=== PATIENT | female | born 1960 | race Caucasian/White ===

== ENCOUNTER 2017-08-19 08:54 | Inpatient (IN) | payer MEDICAID ==
[~2017-08-19] VITALS: Ht 157.5 cm; Wt 68.3 kg
[~2017-08-19 08:54] MED LIST: AMLO5TAB4 PO; ASPI-1182 PO; CARV12.530 PO; FURO20TA4 PO; INSU100C4 SQ; ISOS30TA6 PO; OXYC-38 PO; SIMV20TA6 PO
[2017-08-19 09:15] LABS: BASOPHILS % (AUTO) 0.3 % (0.0-2.0); HEMOGLOBIN 9.2 g/dL (12.0-16.0); LYMPHOCYTES # (AUTO) 1.7 K/uL (1.0-4.8); LYMPHOCYTES % (AUTO) 15.6 % (22.0-44.0); MEAN CORPUSCULAR HEMOGLOBIN 31.5 pg (26.0-34.0); MEAN CORPUSCULAR VOLUME 93 fL (80-100); MONOCYTES # (AUTO) 0.6 K/uL (0.1-1.0); MONOCYTES % (AUTO) 5.5 % (2.0-9.0); NEUTROPHILS # (AUTO) 7.8 K/uL (1.8-7.7); NEUTROPHILS % (AUTO) 70.6 % (40.0-70.0); PLATELET COUNT (AUTO) 172 K/uL (150-450); RED BLOOD CELL COUNT(AUTO) 2.91 MIL/uL (4.00-5.20); RED CELL DISTRIBUTION WIDTH 13.9 % (11.5-14.5); WHITE BLOOD COUNT (AUTO) 11.1 K/uL (4.5-11.0)
[2017-08-19 09:29] LABS: ANION GAP 11 mmol/L (8-16); CALCIUM, TOTAL 8.8 mg/dL (8.8-10.5); CARBON DIOXIDE 22 mmol/L (22-29); CHLORIDE 105 mmol/L (98-107); CREATININE 7.53 mg/dL (0.60-1.30); GLOMERULAR FILTR. RATE CALC 6 mL/min (>60); POTASSIUM 5.2 mmol/L (3.5-5.1); SODIUM SERUM 138 mmol/L (136-145); UREA NITROGEN, BLOOD 87 mg/dL (7-18)
[2017-08-19 09:35] LABS: ALANINE AMINOTRANSFERASE 15 U/L (12-78); ALBUMIN 2.5 g/dL (3.4-5.0); ASPARTATE AMINOTRANSFERASE 14 U/L (15-37); BILIRUBIN,TOTAL 0.2 mg/dL (0.1-1.0); CREATINE KINASE, TOTAL 69 U/L (26-192); TOTAL PROTEIN, SERUM 6.7 g/dL (6.4-8.2)
[2017-08-19 09:36] LABS: B-TYPE NATRIURETIC PEPTIDE 1820 pg/mL (0-100)
[2017-08-19 09:43] LABS: INR 0.9 (0.9-1.1); PROTHROMBIN TIME 9.8 SEC (9.4-11.6)
[2017-08-19 09:50] LABS: ABG A-A DIFF O2 60.1 mmHg (10-20.0); ABG BASE EXCESS -3.6 mmol/L (-2.0-3.0); ABG HCO3 21.8 mmol/L (22.0-26.0); ABG OXYHEMOGLOBIN 96.7 % (94.0-100.0); ABG PCO2 36 mmHg (35-45); ALLEN TEST, BLOOD GAS Positive; TEMPERATURE, FAHRENHEIT, BG 98.1 FAHREN (96.0-98.6)
[2017-08-19 09:51] LABS: IPAP, BG 14 cm H2O
[2017-08-19 10:02] LABS: GLUCOSE,POINT OF CARE 118 MG/DL (70-110)
[2017-08-19 10:09] LABS: APPEARANCE,URINE CLEAR (CLEAR); GLUCOSE, URINE (UA) 250 mg/dL (NEGATIVE); KETONES,URINE NEGATIVE (NEGATIVE); LEUKOCYTE ESTERASE ,URINE NEGATIVE (NEGATIVE); OCCULT BLOOD,URINE SMALL (NEGATIVE); PROTEIN,URINE SEE CONFIRM (NEGATIVE)
[2017-08-19 10:11] LABS: ADD UA MICROSCOPIC YES
[2017-08-19 10:25] LABS: SQUAMOUS EPITHELIAL CELL,UR Moderate /LPF (None Seen); SULFOSALICYLIC ACID,URINE 3+ (Negative); WBC,URINE None Seen /HPF (0-5)
[2017-08-19] MEDS ORDERED: CARVEDILOL 3.125 MG TABLET PO ONE (10:45)
[2017-08-19] MEDS ORDERED: AmLODIPine BESYLATE 5 MG TABLET PO ONE (10:45)
[2017-08-19] MEDS ORDERED: 0.9% SODIUM CHLORIDE 10 ML SYRINGE IVP PRN (11:15)
[2017-08-19] MEDS ORDERED: ONDANSETRON HCL 4 MG/2 ML VIAL IVP PRN (11:15)
[2017-08-19] MEDS ORDERED: ACETAMINOPHEN 325 MG TABLET PO PRN (11:15)
[2017-08-19] MEDS ORDERED: ALBUTEROL SULFATE 2.5 MG/0.5 ML NEB SOLUTION NEB PRN (11:30)
[2017-08-19] MEDS ORDERED: DEXTROSE 50%-WATER 25 GM/50 ML SYRINGE IVP PRN (11:30)
[2017-08-19] MEDS ORDERED: BISACODYL 10 MG RECTAL RECTAL SUPPOSITORY PR PRN (11:30)
[2017-08-19] MEDS: ASPIRIN 81 MG CHEWABLE TABLET PO SCH (11:32)
[2017-08-19 12:25] VITALS: BP 166/84
[2017-08-19] MEDS ORDERED: SODIUM CHLORIDE 0.9% 2,000 ML IV ONE (12:32)
[2017-08-19] MEDS: VITAMIN B COMP/VIT C/FOLIC ACID CAPSULE PO SCH (13:32)
[2017-08-19] MEDS: CALCIUM ACETATE 667 MG CAPSULE PO SCH ×2 (13:32→18:27)
[2017-08-19] MEDS ORDERED: PNEUMOCOCCAL VACCINE POLYVALENT 0.5 ML VIAL [PPSV23] IM ONE (14:15)
[2017-08-19 15:11] VITALS: BP 163/89
[2017-08-19] MEDS ORDERED: MANNITOL 25%-12.5 GM/50 ML VIAL IVP PRN (16:15)
[2017-08-19] MEDS ORDERED: HEPARIN SODIUM,PORCINE 1,000 UNITS/ML VIAL IVP ONE ×2 (16:15)
[2017-08-19] MEDS: OxyCODONE HCL/ACETAMINOPHEN 5-325 MG TABLET PO PRN ×2 (16:35→22:26)
[2017-08-19] MEDS: SIMVASTATIN 20 MG TABLET PO SCH (19:46)
[2017-08-19] MEDS: ACETAMINOPHEN 325 MG TABLET PO PRN (19:46)
[2017-08-19] MEDS: DOCUSATE SODIUM 100 MG CAPSULE PO SCH (19:46)
[2017-08-19 19:49] VITALS: BP 148/72
[2017-08-19] MEDS: HEPARIN SODIUM,PORCINE 5,000 UNITS/ML VIAL SQ SCH (19:52)
[2017-08-19] MEDS: INSULIN ASPART 100 UNITS/ML SQ PRN (20:21)
[2017-08-19 23:48] VITALS: BP 155/84
[2017-08-20 04:35] VITALS: BP 180/83
[2017-08-20] MEDS: OxyCODONE HCL/ACETAMINOPHEN 5-325 MG TABLET PO PRN ×4 (04:36→23:33)
[2017-08-20 06:48] LABS: GLUCOSE,POINT OF CARE 123 MG/DL (70-110)
[2017-08-20 06:48] LABS: GLUCOSE COMMENT 1 Received Meds; GLUCOSE,POINT OF CARE 150 MG/DL (70-110)
[2017-08-20 07:14] VITALS: BP 164/87
[2017-08-20] MEDS: CALCIUM ACETATE 667 MG CAPSULE PO SCH ×3 (08:13→18:14)
[2017-08-20] MEDS: HEPARIN SODIUM,PORCINE 5,000 UNITS/ML VIAL SQ SCH ×2 (08:14→20:13)
[2017-08-20] MEDS: ASPIRIN 81 MG CHEWABLE TABLET PO SCH (08:14)
[2017-08-20] MEDS: VITAMIN B COMP/VIT C/FOLIC ACID CAPSULE PO SCH (08:14)
[2017-08-20] MEDS: PANTOPRAZOLE SODIUM 40 MG DR TABLET PO SCH (08:14)
[2017-08-20] MEDS: DOCUSATE SODIUM 100 MG CAPSULE PO SCH ×2 (08:14→20:13)
[2017-08-20] MEDS: ACETAMINOPHEN 325 MG TABLET PO PRN (08:19)
[2017-08-20] MEDS ORDERED: IOVERSOL 350 MG/ML 100 ML VIAL ONE (09:49)
[2017-08-20] MEDS ORDERED: SODIUM CHLORIDE 0.9% 100 ML ONE (09:49)
[2017-08-20] MEDS: AmLODIPine BESYLATE 5 MG TABLET PO SCH (10:58)
[2017-08-20] MEDS: CARVEDILOL 12.5 MG TABLET PO SCH (10:59)
[2017-08-20 11:05] VITALS: BP 162/75
[2017-08-20] MEDS: INSULIN ASPART 100 UNITS/ML SQ PRN ×3 (11:37→20:14)
[2017-08-20 12:32] LABS: GLUCOSE,POINT OF CARE 95 MG/DL (70-110)
[2017-08-20 12:32] LABS: GLUCOSE,POINT OF CARE 122 MG/DL (70-110)
[2017-08-20 15:40] VITALS: BP 166/75
[2017-08-20 19:37] LABS: GLUCOSE COMMENT 1 Received Meds; GLUCOSE,POINT OF CARE 151 MG/DL (70-110)
[2017-08-20 19:48] VITALS: BP 159/80
[2017-08-20] MEDS: SIMVASTATIN 20 MG TABLET PO SCH (20:13)
[2017-08-20 23:02] LABS: GLUCOSE COMMENT 1 Received Meds; GLUCOSE,POINT OF CARE 147 MG/DL (70-110)
[2017-08-20 23:40] VITALS: BP 163/81
[2017-08-21 04:10] VITALS: BP 169/84
[2017-08-21] MEDS: OxyCODONE HCL/ACETAMINOPHEN 5-325 MG TABLET PO PRN ×3 (05:45→20:37)
[2017-08-21 07:02] LABS: CALCIUM, TOTAL 8.3 mg/dL (8.8-10.5); CREATININE 6.66 mg/dL (0.60-1.30); PHOSPHORUS 4.9 mg/dL (2.5-4.9); POTASSIUM 4.9 mmol/L (3.5-5.1)
[2017-08-21 07:02] LABS: GLUCOSE,POINT OF CARE 85 MG/DL (70-110)
[2017-08-21 07:06] VITALS: BP 157/90
[2017-08-21 07:06] LABS: BASOPHILS % (AUTO) 0.8 % (0.0-2.0); HEMATOCRIT 24.6 % (36-46); HEMOGLOBIN 8.4 g/dL (12.0-16.0); LYMPHOCYTES # (AUTO) 2.1 K/uL (1.0-4.8); LYMPHOCYTES % (AUTO) 27.3 % (22.0-44.0); MEAN CORPUSCULAR HEMOGLOBIN 31.6 pg (26.0-34.0); MEAN CORPUSCULAR HGB CONC 34.1 G/dL (31.0-37.0); MEAN CORPUSCULAR VOLUME 93 fL (80-100); MONOCYTES # (AUTO) 0.5 K/uL (0.1-1.0); MONOCYTES % (AUTO) 6.6 % (2.0-9.0); NEUTROPHILS # (AUTO) 4.3 K/uL (1.8-7.7); NEUTROPHILS % (AUTO) 55.3 % (40.0-70.0); PLATELET COUNT (AUTO) 153 K/uL (150-450); RED BLOOD CELL COUNT(AUTO) 2.65 MIL/uL (4.00-5.20); RED CELL DISTRIBUTION WIDTH 13.5 % (11.5-14.5); WHITE BLOOD COUNT (AUTO) 7.7 K/uL (4.5-11.0)
[2017-08-21] MEDS: DOCUSATE SODIUM 100 MG CAPSULE PO SCH ×2 (08:14→20:37)
[2017-08-21] MEDS: HEPARIN SODIUM,PORCINE 5,000 UNITS/ML VIAL SQ SCH ×2 (08:14→20:38)
[2017-08-21] MEDS: VITAMIN B COMP/VIT C/FOLIC ACID CAPSULE PO SCH (08:14)
[2017-08-21] MEDS: PANTOPRAZOLE SODIUM 40 MG DR TABLET PO SCH (08:14)
[2017-08-21] MEDS: ASPIRIN 81 MG CHEWABLE TABLET PO SCH (08:14)
[2017-08-21] MEDS: CALCIUM ACETATE 667 MG CAPSULE PO SCH ×3 (08:15→18:10)
[2017-08-21] MEDS ORDERED: SODIUM CHLORIDE 0.9% 1,000 ML IV ONE (08:40)
[2017-08-21] MEDS ORDERED: EPOETIN ALFA 10,000 UNITS/ML VIAL SQ SCH (09:00)
[2017-08-21 10:55] VITALS: BP 180/70
[2017-08-21] MEDS: CARVEDILOL 12.5 MG TABLET PO SCH (12:14)
[2017-08-21] MEDS: AmLODIPine BESYLATE 5 MG TABLET PO SCH (12:14)
[2017-08-21 16:00] VITALS: BP 135/98
[2017-08-21] MEDS ORDERED: DOCUSATE SODIUM 100 MG CAPSULE PO PRN (17:15)
[2017-08-21] MEDS ORDERED: HEPARIN SODIUM,PORCINE 1,000 UNITS/ML VIAL ONE (17:37)
[2017-08-21] MEDS: INSULIN ASPART 100 UNITS/ML SQ PRN ×2 (18:18→20:44)
[2017-08-21 19:16] VITALS: BP 161/86
[2017-08-21] MEDS: SIMVASTATIN 20 MG TABLET PO SCH (20:37)
[2017-08-22 00:48] VITALS: BP 174/88
[2017-08-22] MEDS: OxyCODONE HCL/ACETAMINOPHEN 5-325 MG TABLET PO PRN ×4 (02:57→16:52)
[2017-08-22 03:40] VITALS: BP 179/79
[2017-08-22 07:26] VITALS: BP 157/80
[2017-08-22] MEDS: DOCUSATE SODIUM 100 MG CAPSULE PO SCH (08:29)
[2017-08-22] MEDS: CALCIUM ACETATE 667 MG CAPSULE PO SCH ×3 (08:29→18:12)
[2017-08-22] MEDS: ASPIRIN 81 MG CHEWABLE TABLET PO SCH (08:29)
[2017-08-22] MEDS: PANTOPRAZOLE SODIUM 40 MG DR TABLET PO SCH (08:30)
[2017-08-22] MEDS: HEPARIN SODIUM,PORCINE 5,000 UNITS/ML VIAL SQ SCH (08:30)
[2017-08-22 10:21] LABS: BASOPHILS % (AUTO) 0.6 % (0.0-2.0); EOSINOPHILS % (AUTO) 9.6 % (1.0-6.0); HEMATOCRIT 26.1 % (36-46); HEMOGLOBIN 8.9 g/dL (12.0-16.0); LYMPHOCYTES # (AUTO) 1.2 K/uL (1.0-4.8); LYMPHOCYTES % (AUTO) 16.4 % (22.0-44.0); MEAN CORPUSCULAR HEMOGLOBIN 31.6 pg (26.0-34.0); MEAN CORPUSCULAR HGB CONC 34.1 G/dL (31.0-37.0); MEAN CORPUSCULAR VOLUME 93 fL (80-100); MONOCYTES # (AUTO) 0.5 K/uL (0.1-1.0); MONOCYTES % (AUTO) 7.2 % (2.0-9.0); NEUTROPHILS # (AUTO) 4.7 K/uL (1.8-7.7); NEUTROPHILS % (AUTO) 66.2 % (40.0-70.0); PLATELET COUNT (AUTO) 144 K/uL (150-450); RED BLOOD CELL COUNT(AUTO) 2.81 MIL/uL (4.00-5.20); RED CELL DISTRIBUTION WIDTH 13.5 % (11.5-14.5); WHITE BLOOD COUNT (AUTO) 7.1 K/uL (4.5-11.0)
[2017-08-22 11:05] VITALS: BP 158/88
[2017-08-22] MEDS ORDERED: AMLO5TAB66 PO (11:53)
[2017-08-22] MEDS ORDERED: PHOSLOC PO (11:59)
[2017-08-22] MEDS ORDERED: DSS100 PO (11:59)
[2017-08-22] MEDS ORDERED: FOLI1CAP2 PO (11:59)
[2017-08-22] MEDS: INSULIN ASPART 100 UNITS/ML SQ PRN (12:13)
[2017-08-22 14:43] LABS: GLUCOSE,POINT OF CARE 100 MG/DL (70-110)
[2017-08-22 14:44] LABS: GLUCOSE,POINT OF CARE 119 MG/DL (70-110)
[2017-08-22 14:44] LABS: GLUCOSE,POINT OF CARE 91 MG/DL (70-110)
[2017-08-22 14:44] LABS: GLUCOSE COMMENT 1 Received Meds; GLUCOSE,POINT OF CARE 142 MG/DL (70-110)
[2017-08-22 14:44] LABS: GLUCOSE COMMENT 1 Received Meds; GLUCOSE,POINT OF CARE 142 MG/DL (70-110)
[2017-08-22 17:58] VITALS: BP 159/91
[2017-08-22] MEDS: VITAMIN B COMP/VIT C/FOLIC ACID CAPSULE PO SCH (18:12)
[2017-08-22] MEDS: AmLODIPine BESYLATE 5 MG TABLET PO SCH (18:12)
[2017-08-22] MEDS: CARVEDILOL 12.5 MG TABLET PO SCH (18:12)
[2017-08-22] MEDS ORDERED: HEPARIN SODIUM,PORCINE 1,000 UNITS/ML VIAL IVP ONE (18:42)
[2017-08-23 07:43] LABS: GLUCOSE,POINT OF CARE 94 MG/DL (70-110)
== END 2017-08-22 18:43 | disposition home or self-care (01) | DRG 425 ==
LOC: EMS 08:55 → 5S 11:16
PROVIDERS: ADMIT Internal Medicine; ATTEND Internal Medicine
PROC: 5A09457 Assistance with Respiratory Ventilation, 24-96 Consecutive Hours, Continuous Positive Airway Pressure (ICD-10-PCS; principal; 2017-08-19)
PROC: 5A1D60Z (ICD-10-PCS; 2017-08-19)
DX: E87.5 Hyperkalemia (principal); J96.01 Acute respiratory failure with hypoxia; I13.2 Hypertensive heart and chronic kidney disease with heart failure and with stage 5 chronic kidney disease, or end stage renal disease; E44.0 Moderate protein-calorie malnutrition; N18.6 End stage renal disease; E11.22 Type 2 diabetes mellitus with diabetic chronic kidney disease; I27.2 Other secondary pulmonary hypertension; E11.65 Type 2 diabetes mellitus with hyperglycemia; E87.70 Fluid overload, unspecified; D63.1 Anemia in chronic kidney disease; E78.5 Hyperlipidemia, unspecified; I50.40 Unspecified combined systolic (congestive) and diastolic (congestive) heart failure; E83.39 Other disorders of phosphorus metabolism; J98.11 Atelectasis; G25.5 Other chorea; I08.3 Combined rheumatic disorders of mitral, aortic and tricuspid valves; Z68.27 Body mass index [BMI] 27.0-27.9, adult; Z86.718 Personal history of other venous thrombosis and embolism; Z86.73 Personal history of transient ischemic attack (TIA), and cerebral infarction without residual deficits; Z79.899 Other long term (current) drug therapy; Z99.2 Dependence on renal dialysis; Z79.82 Long term (current) use of aspirin
CPT/HCPCS: 71260; 82805; 82962; 84100; 87081; 87340; 90471; 90935; 93005; 94660; 99285; J0885; J1644; J7030; J7050

== ENCOUNTER 2018-02-21 19:57 | Inpatient (IN) | payer MEDICAID ==
[~2018-02-21] VITALS: Ht 157.5 cm; Wt 57.6 kg
[~2018-02-21 19:57] MED LIST changes: -AMLO5TAB4 PO; +AMLO5TAB66 PO; +DSS100 PO; +FOLI1CAP2 PO; +PHOSLOC PO
[2018-02-21] MEDS ORDERED: CARV6 PO (20:13)
[2018-02-21] MEDS ORDERED: TRAM50TA4 PO (20:13)
[2018-02-21] MEDS ORDERED: LISI-662 PO (20:13)
[2018-02-21] MEDS ORDERED: CHOL50004 PO (20:13)
[2018-02-21] MEDS ORDERED: GABA-531 PO (20:13)
[2018-02-21 20:22] LABS: GLUCOSE,POINT OF CARE 91 MG/DL (70-110)
[2018-02-21] MEDS ORDERED: KETOROLAC TROMETHAMINE 30 MG/ML VIAL IVP ONE (21:00)
[2018-02-21] MEDS ORDERED: SODIUM CHLORIDE 0.9% 1,000 ML IV ONE (21:00)
[2018-02-21] MEDS ORDERED: MORPHINE SULFATE 4 MG/ML SYRINGE IVP ONE (21:15)
[2018-02-21 21:16] LABS: EOSINOPHILS % (AUTO) 1.4 % (1.0-6.0); HEMATOCRIT 30.1 % (36-46); HEMOGLOBIN 10.5 g/dL (12.0-16.0); LYMPHOCYTES # (AUTO) 0.8 K/uL (1.0-4.8); LYMPHOCYTES % (AUTO) 10.7 % (22.0-44.0); MEAN CORPUSCULAR HEMOGLOBIN 32.4 pg (26.0-34.0); MEAN CORPUSCULAR HGB CONC 34.9 G/dL (31.0-37.0); MEAN CORPUSCULAR VOLUME 93 fL (80-100); MONOCYTES # (AUTO) 0.5 K/uL (0.1-1.0); MONOCYTES % (AUTO) 6.3 % (2.0-9.0); NEUTROPHILS % (AUTO) 80.6 % (40.0-70.0); PLATELET COUNT (AUTO) 212 K/uL (150-450); RED BLOOD CELL COUNT(AUTO) 3.24 MIL/uL (4.00-5.20); RED CELL DISTRIBUTION WIDTH 13.8 % (11.5-14.5)
[2018-02-21 21:26] LABS: CALCIUM, TOTAL 8.5 mg/dL (8.8-10.5); CREATININE 3.35 mg/dL (0.60-1.30); POTASSIUM 4.2 mmol/L (3.5-5.1)
[2018-02-21 21:32] LABS: ALBUMIN 3.3 g/dL (3.4-5.0); BILIRUBIN,TOTAL 0.4 mg/dL (0.1-1.0); TOTAL PROTEIN, SERUM 6.9 g/dL (6.4-8.2)
[2018-02-21 22:12] LABS: LACTIC ACID 0.7 mmol/L (0.4-2.0)
[2018-02-22] MEDS ORDERED: MORPHINE SULFATE 4 MG/ML SYRINGE IVP ONE ×2 (00:30→02:45)
[2018-02-22] MEDS ORDERED: ONDANSETRON HCL 4 MG/2 ML VIAL IVP PRN (02:30)
[2018-02-22] MEDS ORDERED: ACETAMINOPHEN 325 MG TABLET PO PRN ×2 (02:30→10:00)
[2018-02-22] MEDS ORDERED: 0.9% SODIUM CHLORIDE 10 ML SYRINGE IVP PRN (02:30)
[2018-02-22] MEDS ORDERED: LORazepam 2 MG/ML VIAL IVP ONE (02:45)
[2018-02-22 07:45] VITALS: BP 190/89
[2018-02-22] MEDS ORDERED: BISACODYL 10 MG RECTAL RECTAL SUPPOSITORY PR PRN (10:00)
[2018-02-22] MEDS ORDERED: DEXTROSE 50%-WATER 25 GM/50 ML SYRINGE IVP PRN (10:00)
[2018-02-22] MEDS ORDERED: INSULIN LISPRO 100 UNITS/ML SQ PRN (10:00)
[2018-02-22] MEDS: MORPHINE SULFATE 4 MG/ML SYRINGE IVP PRN ×2 (10:21→14:03)
[2018-02-22] MEDS: AmLODIPine BESYLATE 10 MG TABLET PO SCH (10:24)
[2018-02-22] MEDS: CARVEDILOL 6.25 MG TABLET PO SCH ×2 (10:24→19:45)
[2018-02-22] MEDS: ASPIRIN 81 MG CHEWABLE TABLET PO SCH (10:25)
[2018-02-22 12:09] VITALS: BP 187/99
[2018-02-22 14:08] LABS: APPEARANCE,URINE CLEAR (CLEAR); BILIRUBIN,URINE NEGATIVE (NEGATIVE); GLUCOSE, URINE (UA) 250 mg/dL (NEGATIVE); KETONES,URINE NEGATIVE (NEGATIVE); LEUKOCYTE ESTERASE ,URINE NEGATIVE (NEGATIVE); NITRATE,URINE NEGATIVE (NEGATIVE); OCCULT BLOOD,URINE NEGATIVE (NEGATIVE); PROTEIN,URINE SEE CONFIRM (NEGATIVE); UROBILINOGEN,URINE 0.2 mg/dL (<=1.0)
[2018-02-22 14:16] LABS: SULFOSALICYLIC ACID,URINE 4+ (Negative)
[2018-02-22 14:17] LABS: BACTERIA,URINE Rare /HPF (None Seen); RBC,URINE None Seen /HPF (0-2); SQUAMOUS EPITHELIAL CELL,UR Few /LPF (None Seen); WBC,URINE 0-2 /HPF (0-5)
[2018-02-22 14:19] LABS: HYALINE CASTS, URINE 0-2 /LPF (None Seen)
[2018-02-22 14:57] LABS: GLUCOMETER DEV NAME(LOC) 6N 1E; GLUCOSE,POINT OF CARE 141 MG/DL (70-110)
[2018-02-22 15:17] VITALS: BP 173/80
[2018-02-22] MEDS ORDERED: AMLO-512 PO (16:34)
[2018-02-22] MEDS ORDERED: -PHARMACY VACCINE NOTE- MISC ONE (16:45)
[2018-02-22] MEDS: OxyCODONE HCL/ACETAMINOPHEN 5-325 MG TABLET PO PRN ×2 (17:36→21:01)
[2018-02-22 17:42] LABS: GLUCOMETER DEV NAME(LOC) 6N 1E; GLUCOSE,POINT OF CARE 100 MG/DL (70-110)
[2018-02-22 19:29] VITALS: BP 152/74
[2018-02-22] MEDS: HEPARIN SODIUM,PORCINE 5,000 UNITS/ML VIAL SQ SCH (19:45)
[2018-02-22] MEDS: DOCUSATE SODIUM 100 MG CAPSULE PO SCH (19:45)
[2018-02-22] MEDS ORDERED: SIMVASTATIN 20 MG TABLET PO SCH (21:00)
[2018-02-22 22:52] LABS: GLUCOMETER DEV NAME(LOC) 6N 2D; GLUCOSE,POINT OF CARE 130 MG/DL (70-110)
[2018-02-22 23:22] VITALS: BP 186/97
[2018-02-23] MEDS: OxyCODONE HCL/ACETAMINOPHEN 5-325 MG TABLET PO PRN ×4 (00:43→11:39)
[2018-02-23 04:20] VITALS: BP 189/93
[2018-02-23 04:53] VITALS: BP 167/94
[2018-02-23 06:17] LABS: GLUCOMETER DEV NAME(LOC) 6N 1E; GLUCOSE,POINT OF CARE 82 MG/DL (70-110)
[2018-02-23] MEDS: AmLODIPine BESYLATE 10 MG TABLET PO SCH (07:46)
[2018-02-23] MEDS: DOCUSATE SODIUM 100 MG CAPSULE PO SCH (07:46)
[2018-02-23] MEDS: ASPIRIN 81 MG CHEWABLE TABLET PO SCH (07:47)
[2018-02-23] MEDS: HEPARIN SODIUM,PORCINE 5,000 UNITS/ML VIAL SQ SCH (07:47)
[2018-02-23] MEDS: CARVEDILOL 6.25 MG TABLET PO SCH (07:47)
[2018-02-23 07:53] VITALS: BP 180/103
[2018-02-23] MEDS ORDERED: PANTOPRAZOLE SODIUM 40 MG DR TABLET PO SCH (09:00)
[2018-02-23 09:37] VITALS: BP 164/109
[2018-02-23 11:12] LABS: GLUCOMETER DEV NAME(LOC) 6N 2D; GLUCOSE,POINT OF CARE 132 MG/DL (70-110)
[2018-02-23 11:33] VITALS: BP 142/92
[2018-02-23] MEDS ORDERED: CloNIDine HCL 0.1 MG TABLET PO PRN (12:15)
== END 2018-02-23 13:11 | disposition home or self-care (01) | DRG 48 ==
LOC: EMS 20:10 → 6N 02-22 04:00
PROVIDERS: ADMIT Internal Medicine; ATTEND Internal Medicine
DX: E11.43 Type 2 diabetes mellitus with diabetic autonomic (poly)neuropathy (principal); I13.2 Hypertensive heart and chronic kidney disease with heart failure and with stage 5 chronic kidney disease, or end stage renal disease; N18.6 End stage renal disease; E11.22 Type 2 diabetes mellitus with diabetic chronic kidney disease; K31.84 Gastroparesis; K80.20 Calculus of gallbladder without cholecystitis without obstruction; I69.351 Hemiplegia and hemiparesis following cerebral infarction affecting right dominant side; G24.01 Drug induced subacute dyskinesia; E78.00 Pure hypercholesterolemia, unspecified; I50.20 Unspecified systolic (congestive) heart failure; E11.65 Type 2 diabetes mellitus with hyperglycemia; N83.201 Unspecified ovarian cyst, right side; G89.29 Other chronic pain; E78.5 Hyperlipidemia, unspecified; Z99.2 Dependence on renal dialysis; Z79.82 Long term (current) use of aspirin; Z79.899 Other long term (current) drug therapy
CPT/HCPCS: 74176; 76705; 76856; 82962; 83605; 87081; 93005; J1644; J1885; J2060; J2270; J7030

== ENCOUNTER 2018-03-10 19:52 | Emergency (ER) | payer MEDICAID ==
[~2018-03-10] VITALS: Ht 157.5 cm; Wt 60.8 kg
[~2018-03-10 19:52] MED LIST changes: +AMLO-512 PO; -AMLO5TAB66 PO; -CARV12.530 PO; +CARV6 PO; +CHOL50004 PO; -DSS100 PO; -FOLI1CAP2 PO; -FURO20TA4 PO; +GABA-531 PO; -INSU100C4 SQ; -ISOS30TA6 PO; -OXYC-38 PO; +TRAM50TA4 PO
[2018-03-10 20:17] LABS: GLUCOSE,POINT OF CARE 96 MG/DL (70-110)
[2018-03-10] MEDS ORDERED: ONDANSETRON HCL 4 MG TABLET PO ONE (20:45)
[2018-03-10] MEDS ORDERED: OxyCODONE HCL/ACETAMINOPHEN 5-325 MG TABLET PO ONE (20:45)
[2018-03-10 20:50] LABS: BASOPHILS % (AUTO) 0.9 % (0.0-2.0); HEMATOCRIT 29.3 % (36-46); HEMOGLOBIN 10.1 g/dL (12.0-16.0); LYMPHOCYTES % (AUTO) 10.9 % (22.0-44.0); MEAN CORPUSCULAR HEMOGLOBIN 32.6 pg (26.0-34.0); MEAN CORPUSCULAR HGB CONC 34.7 G/dL (31.0-37.0); MEAN CORPUSCULAR VOLUME 94 fL (80-100); MONOCYTES # (AUTO) 0.6 K/uL (0.1-1.0); MONOCYTES % (AUTO) 7.2 % (2.0-9.0); NEUTROPHILS # (AUTO) 6.9 K/uL (1.8-7.7); PLATELET COUNT (AUTO) 197 K/uL (150-450); RED BLOOD CELL COUNT(AUTO) 3.12 MIL/uL (4.00-5.20); RED CELL DISTRIBUTION WIDTH 13.4 % (11.5-14.5)
[2018-03-10 21:22] LABS: CALCIUM, TOTAL 8.5 mg/dL (8.8-10.5); CREATININE 3.37 mg/dL (0.60-1.30); POTASSIUM 4.2 mmol/L (3.5-5.1)
[2018-03-10 21:28] LABS: BILIRUBIN,TOTAL 0.5 mg/dL (0.1-1.0); TOTAL PROTEIN, SERUM 7.1 g/dL (6.4-8.2)
[2018-03-10 22:04] VITALS: BP 141/96
== END 2018-03-10 22:51 | disposition home or self-care (01) ==
LOC: EMS 19:53
DX: K29.70 Gastritis, unspecified, without bleeding (principal); E78.00 Pure hypercholesterolemia, unspecified; I12.0 Hypertensive chronic kidney disease with stage 5 chronic kidney disease or end stage renal disease; N18.6 End stage renal disease; E11.9 Type 2 diabetes mellitus without complications; Z79.82 Long term (current) use of aspirin; Z86.73 Personal history of transient ischemic attack (TIA), and cerebral infarction without residual deficits; Z99.2 Dependence on renal dialysis; Z79.899 Other long term (current) drug therapy
CPT/HCPCS: 76705; 80053; 82962; 83690; 84484; 85025; 93005; 99285; Q0162

== ENCOUNTER 2018-10-27 08:10 | Inpatient (IN) | payer MEDICAID ==
[~2018-10-27] VITALS: Ht 160 cm; Wt 61.7 kg
[2018-10-27] MEDS ORDERED: SODIUM BICARBONATE [ADULT] 8.4% 50 MEQ/50 ML SYRINGE IVP ONE (08:15)
[2018-10-27] MEDS ORDERED: DEXTROSE 50%-WATER 25 GM/50 ML SYRINGE IVP ONE (08:15)
[2018-10-27] MEDS ORDERED: INSULIN REGULAR, HUMAN 100 UNITS/ML IVP ONE (08:15)
[2018-10-27] MEDS ORDERED: CALCIUM GLUCONATE 0.465 MEQ/ML 10 ML VIAL IVP ONE (08:15)
[2018-10-27 08:23] LABS: GLUCOSE,POINT OF CARE 164 MG/DL (70-110)
[2018-10-27] MEDS ORDERED: IPRATROPIUM BROMIDE 0.5 MG/2.5 ML NEB SOLUTION NEB ONE ×2 (08:29→09:45)
[2018-10-27] MEDS ORDERED: ALBUTEROL SULFATE 2.5 MG/0.5 ML NEB SOLUTION NEB ONE ×2 (08:29→09:45)
[2018-10-27] MEDS ORDERED: INSU100V12 SQ (08:31)
[2018-10-27] MEDS ORDERED: FURO20 PO (08:31)
[2018-10-27] MEDS ORDERED: ISOS30TA6 PO (08:31)
[2018-10-27] MEDS ORDERED: LISI-662 PO (08:31)
[2018-10-27] MEDS ORDERED: DOPamine HCL 200 MG/D5%-WATER 250 ML IV PRN (08:45)
[2018-10-27 08:52] LABS: EOSINOPHILS % (AUTO) 9.5 % (1.0-6.0); HEMATOCRIT 29.4 % (36-46); HEMOGLOBIN 9.9 g/dL (12.0-16.0); LYMPHOCYTES # (AUTO) 0.9 K/uL (1.0-4.8); LYMPHOCYTES % (AUTO) 17.3 % (22.0-44.0); MEAN CORPUSCULAR HEMOGLOBIN 33.7 pg (26.0-34.0); MEAN CORPUSCULAR HGB CONC 33.7 G/dL (31.0-37.0); MEAN CORPUSCULAR VOLUME 100 fL (80-100); MONOCYTES # (AUTO) 0.1 K/uL (0.1-1.0); MONOCYTES % (AUTO) 2.1 % (2.0-9.0); NEUTROPHILS # (AUTO) 3.5 K/uL (1.8-7.7); NEUTROPHILS % (AUTO) 70.1 % (40.0-70.0); PLATELET COUNT (AUTO) 110 K/uL (150-450); RED BLOOD CELL COUNT(AUTO) 2.94 MIL/uL (4.00-5.20); RED CELL DISTRIBUTION WIDTH 15.8 % (11.5-14.5)
[2018-10-27 08:57] LABS: PROTHROMBIN TIME 10.1 SEC (9.4-11.6)
[2018-10-27] MEDS ORDERED: DOPamine HCL 400 MG/D5%-WATER 250 ML IV PRN ×2 (09:00→12:38)
[2018-10-27 09:25] LABS: ALBUMIN 2.8 g/dL (3.4-5.0); BILIRUBIN,TOTAL 0.7 mg/dL (0.1-1.0); CALCIUM, TOTAL 7.7 mg/dL (8.8-10.5); CREATININE 8.12 mg/dL (0.60-1.30)
[2018-10-27 09:29] LABS: POTASSIUM 7.6 mmol/L (3.5-5.1)
[2018-10-27] MEDS: ALBUTEROL SULFATE 2.5 MG/0.5 ML NEB SOLUTION NEB ONE ×2 (09:49→10:10)
[2018-10-27 12:29] LABS: GLUCOSE,POINT OF CARE 116 MG/DL (70-110)
[2018-10-27] MEDS ORDERED: ZOLPIDEM TARTRATE 5 MG TABLET PO PRN (12:45)
[2018-10-27] MEDS ORDERED: ACETAMINOPHEN 325 MG TABLET PO PRN (12:45)
[2018-10-27] MEDS ORDERED: BISACODYL 10 MG RECTAL RECTAL SUPPOSITORY PR PRN (12:45)
[2018-10-27] MEDS ORDERED: ONDANSETRON HCL 4 MG/2 ML VIAL IVP ONE (12:45)
[2018-10-27] MEDS ORDERED: MAGNESIUM HYDROXIDE SUSPENSION 30 ML UDCUP PO PRN (12:45)
[2018-10-27] MEDS ORDERED: INSULIN LISPRO 100 UNITS/ML SQ PRN (13:00)
[2018-10-27] MEDS ORDERED: DEXTROSE 50%-WATER 25 GM/50 ML SYRINGE IVP PRN (13:00)
[2018-10-27 13:25] LABS: CALCIUM, TOTAL 8.4 mg/dL (8.8-10.5); CREATININE 5.45 mg/dL (0.60-1.30); POTASSIUM 5.5 mmol/L (3.5-5.1)
[2018-10-27] MEDS: ONDANSETRON HCL 4 MG/2 ML VIAL IVP PRN (15:31)
[2018-10-27] MEDS: HydrALAZINE HCL 20 MG/ML VIAL IVP PRN ×2 (15:32→21:18)
[2018-10-27 17:39] VITALS: BP 130/86
[2018-10-27 17:49] LABS: GLUCOSE,POINT OF CARE 54 MG/DL (70-110)
[2018-10-27] MEDS ORDERED: MANNITOL 25%-12.5 GM/50 ML VIAL IVP ONE (17:51)
[2018-10-27] MEDS: HEPARIN SODIUM,PORCINE 5,000 UNITS/ML VIAL SQ SCH ×2 (18:15→23:40)
[2018-10-27] MEDS: CALCIUM ACETATE 667 MG CAPSULE PO SCH (18:16)
[2018-10-27 18:50] VITALS: BP 166/80
[2018-10-27] MEDS: MORPHINE SULFATE 4 MG/ML SYRINGE IVP PRN (18:50)
[2018-10-27 19:16] VITALS: BP 168/75
[2018-10-27 19:30] LABS: GLUCOSE,POINT OF CARE 78 MG/DL (70-110)
[2018-10-27 19:31] LABS: GLUCOSE,POINT OF CARE 115 MG/DL (70-110)
[2018-10-27 21:18] VITALS: BP 179/84
[2018-10-27] MEDS: DOCUSATE SODIUM 100 MG CAPSULE PO SCH (21:18)
[2018-10-27 21:19] LABS: GLUCOSE,POINT OF CARE 99 MG/DL (70-110)
[2018-10-27 21:29] VITALS: BP 179/84
[2018-10-27] MEDS: HYDROCODONE/ACETAMINOPHEN 5-325 MG TABLET PO PRN (21:29)
[2018-10-27 22:11] VITALS: BP 148/67
[2018-10-28] VITALS: BP 172/86
[2018-10-28 04:00] VITALS: BP 148/95
[2018-10-28] MEDS: HydrALAZINE HCL 20 MG/ML VIAL IVP PRN ×2 (05:06→14:47)
[2018-10-28 05:09] LABS: BASOPHILS % (AUTO) 1.3 % (0.0-2.0); EOSINOPHILS % (AUTO) 6.6 % (1.0-6.0); HEMATOCRIT 29.5 % (36-46); HEMOGLOBIN 10.4 g/dL (12.0-16.0); LYMPHOCYTES # (AUTO) 1.2 K/uL (1.0-4.8); LYMPHOCYTES % (AUTO) 19.3 % (22.0-44.0); MEAN CORPUSCULAR HEMOGLOBIN 34.8 pg (26.0-34.0); MEAN CORPUSCULAR HGB CONC 35.3 G/dL (31.0-37.0); MEAN CORPUSCULAR VOLUME 99 fL (80-100); MONOCYTES # (AUTO) 0.5 K/uL (0.1-1.0); MONOCYTES % (AUTO) 7.6 % (2.0-9.0); NEUTROPHILS # (AUTO) 4.1 K/uL (1.8-7.7); NEUTROPHILS % (AUTO) 65.2 % (40.0-70.0); PLATELET COUNT (AUTO) 100 K/uL (150-450); RED CELL DISTRIBUTION WIDTH 15.4 % (11.5-14.5)
[2018-10-28 05:27] LABS: ALBUMIN 2.9 g/dL (3.4-5.0); BILIRUBIN,TOTAL 0.6 mg/dL (0.1-1.0); CALCIUM, TOTAL 8.3 mg/dL (8.8-10.5); CREATININE 5.19 mg/dL (0.60-1.30); MAGNESIUM 2.2 mg/dL (1.80-2.40); TOTAL PROTEIN, SERUM 6.3 g/dL (6.4-8.2)
[2018-10-28 06:49] LABS: GLUCOSE,POINT OF CARE 89 MG/DL (70-110)
[2018-10-28] MEDS: ONDANSETRON HCL 4 MG/2 ML VIAL IVP PRN (07:54)
[2018-10-28] MEDS: HYDROCODONE/ACETAMINOPHEN 5-325 MG TABLET PO PRN ×3 (07:54→23:50)
[2018-10-28 08:00] VITALS: BP 159/67
[2018-10-28] MEDS: HEPARIN SODIUM,PORCINE 5,000 UNITS/ML VIAL SQ SCH ×2 (08:00→17:26)
[2018-10-28] MEDS: CALCIUM ACETATE 667 MG CAPSULE PO SCH ×3 (08:00→17:26)
[2018-10-28] MEDS: AmLODIPine BESYLATE 5 MG TABLET PO SCH ×2 (09:00→20:25)
[2018-10-28] MEDS: DOCUSATE SODIUM 100 MG CAPSULE PO SCH ×2 (09:00→20:36)
[2018-10-28] MEDS: ISOSORBIDE MONONITRATE 30 MG ER TABLET PO SCH (09:00)
[2018-10-28 11:49] LABS: GLUCOSE,POINT OF CARE 95 MG/DL (70-110)
[2018-10-28 12:00] VITALS: BP 157/60
[2018-10-28] MEDS: PANTOPRAZOLE SODIUM 40 MG DR TABLET PO SCH (12:15)
[2018-10-28] MEDS: ATORVASTATIN CALCIUM 10 MG TABLET PO SCH (12:15)
[2018-10-28] MEDS ORDERED: GABAPENTIN 300 MG CAPSULE PO ONE (12:15)
[2018-10-28] MEDS: ASPIRIN 81 MG EC TABLET PO SCH (12:15)
[2018-10-28] MEDS: CHOLECALCIFEROL (VIT D3) 5,000 UNITS CAPSULE PO SCH (12:15)
[2018-10-28] MEDS: MORPHINE SULFATE 4 MG/ML SYRINGE IVP PRN (13:18)
[2018-10-28 20:11] VITALS: BP 177/80
[2018-10-28 20:19] LABS: GLUCOMETER DEV NAME(LOC) 6N.1; GLUCOSE,POINT OF CARE 104 MG/DL (70-110)
[2018-10-29 00:16] VITALS: BP 164/93
[2018-10-29 00:54] LABS: GLUCOMETER DEV NAME(LOC) 6N.1; GLUCOSE,POINT OF CARE 134 MG/DL (70-110)
[2018-10-29] MEDS: HEPARIN SODIUM,PORCINE 5,000 UNITS/ML VIAL SQ SCH ×3 (00:58→16:16)
[2018-10-29 05:13] VITALS: BP 164/89
[2018-10-29] MEDS: HYDROCODONE/ACETAMINOPHEN 5-325 MG TABLET PO PRN ×3 (05:54→17:46)
[2018-10-29 07:03] LABS: BASOPHILS % (AUTO) 1.3 % (0.0-2.0); EOSINOPHILS % (AUTO) 8.8 % (1.0-6.0); HEMATOCRIT 31.1 % (36-46); HEMOGLOBIN 10.8 g/dL (12.0-16.0); LYMPHOCYTES # (AUTO) 1.4 K/uL (1.0-4.8); MEAN CORPUSCULAR HEMOGLOBIN 33.8 pg (26.0-34.0); MEAN CORPUSCULAR HGB CONC 34.6 G/dL (31.0-37.0); MEAN CORPUSCULAR VOLUME 98 fL (80-100); MONOCYTES # (AUTO) 0.6 K/uL (0.1-1.0); MONOCYTES % (AUTO) 9.7 % (2.0-9.0); NEUTROPHILS # (AUTO) 3.4 K/uL (1.8-7.7); NEUTROPHILS % (AUTO) 57.2 % (40.0-70.0); PLATELET COUNT (AUTO) 104 K/uL (150-450); RED BLOOD CELL COUNT(AUTO) 3.18 MIL/uL (4.00-5.20); RED CELL DISTRIBUTION WIDTH 14.9 % (11.5-14.5)
[2018-10-29 07:30] LABS: ALBUMIN 2.9 g/dL (3.4-5.0); BILIRUBIN,TOTAL 0.6 mg/dL (0.1-1.0); CALCIUM, TOTAL 8.5 mg/dL (8.8-10.5); CREATININE 4.86 mg/dL (0.60-1.30); MAGNESIUM 2.1 mg/dL (1.80-2.40); PHOSPHORUS 5.4 mg/dL (2.5-4.9); POTASSIUM 4.4 mmol/L (3.5-5.1); TOTAL PROTEIN, SERUM 6.5 g/dL (6.4-8.2)
[2018-10-29 07:49] LABS: GLUCOMETER DEV NAME(LOC) 6N.1; GLUCOSE,POINT OF CARE 81 MG/DL (70-110)
[2018-10-29 08:00] VITALS: BP 155/75
[2018-10-29] MEDS: DOCUSATE SODIUM 100 MG CAPSULE PO SCH (08:24)
[2018-10-29] MEDS: ATORVASTATIN CALCIUM 10 MG TABLET PO SCH (08:24)
[2018-10-29] MEDS: CALCIUM ACETATE 667 MG CAPSULE PO SCH ×3 (08:24→17:46)
[2018-10-29] MEDS: ASPIRIN 81 MG EC TABLET PO SCH (08:25)
[2018-10-29] MEDS: ISOSORBIDE MONONITRATE 30 MG ER TABLET PO SCH (08:25)
[2018-10-29] MEDS: AmLODIPine BESYLATE 5 MG TABLET PO SCH (08:25)
[2018-10-29] MEDS: PANTOPRAZOLE SODIUM 40 MG DR TABLET PO SCH (08:26)
[2018-10-29] MEDS: CHOLECALCIFEROL (VIT D3) 5,000 UNITS CAPSULE PO SCH (08:26)
[2018-10-29] MEDS ORDERED: GABAPENTIN 300 MG CAPSULE PO SCH (09:00)
[2018-10-29] MEDS ORDERED: HydrALAZINE HCL 25 MG TABLET PO SCH (09:00)
[2018-10-29] MEDS ORDERED: VITAMIN B COMP/VIT C/FOLIC ACID CAPSULE PO SCH (09:00)
[2018-10-29] MEDS ORDERED: HydrALAZINE HCL 50 MG TABLET PO SCH ×2 (09:00→16:00)
[2018-10-29] MEDS: MORPHINE SULFATE 4 MG/ML SYRINGE IVP PRN (09:25)
[2018-10-29 11:53] VITALS: BP 137/66
[2018-10-29 12:59] LABS: GLUCOMETER DEV NAME(LOC) 5S.2; GLUCOSE,POINT OF CARE 139 MG/DL (70-110)
[2018-10-29 15:21] VITALS: BP 145/80
[2018-10-30 10:24] LABS: GLUCOMETER DEV NAME(LOC) 5S.2; GLUCOSE,POINT OF CARE 130 MG/DL (70-110)
== END 2018-10-29 19:20 | disposition home or self-care (01) | DRG 194 ==
LOC: EMS 08:11 → ICU 14:03 → 6N 10-28 15:30 → 5S 10-29 10:30
PROVIDERS: ADMIT Internal Medicine; ATTEND Internal Medicine
DX: I13.2 Hypertensive heart and chronic kidney disease with heart failure and with stage 5 chronic kidney disease, or end stage renal disease (principal); G93.41 Metabolic encephalopathy; E11.22 Type 2 diabetes mellitus with diabetic chronic kidney disease; D69.6 Thrombocytopenia, unspecified; I27.20 Pulmonary hypertension, unspecified; I95.9 Hypotension, unspecified; E87.5 Hyperkalemia; N18.6 End stage renal disease; I50.31 Acute diastolic (congestive) heart failure; E78.5 Hyperlipidemia, unspecified; Z86.73 Personal history of transient ischemic attack (TIA), and cerebral infarction without residual deficits; E78.00 Pure hypercholesterolemia, unspecified; R00.1 Bradycardia, unspecified; Z99.2 Dependence on renal dialysis; I34.0 Nonrheumatic mitral (valve) insufficiency
CPT/HCPCS: 70450; 80074; 83735; 84100; 87081; 93005; 93306; 94640; 96374; 96375; 96376; 99291; G0378; J0360; J0610; J1265; J1644; J1815; J2150; J2270; J2405; J3490

== ENCOUNTER 2019-06-09 22:26 | Emergency (ER) | payer MEDICAID ==
[~2019-06-09] VITALS: Ht 157.5 cm; Wt 56.8 kg
[~2019-06-09 22:26] MED LIST changes: -AMLO-512 PO; +AMLO10TA7 PO; +FURO20 PO; +ISOS30TA6 PO
[2019-06-09 23:04] LABS: GLUCOSE,POINT OF CARE 83 MG/DL (70-110)
[2019-06-10 00:17] LABS: BASOPHILS % (AUTO) 1.1 % (0.0-2.0); HEMATOCRIT 29.3 % (36-46); HEMOGLOBIN 9.7 g/dL (12.0-16.0); LYMPHOCYTES # (AUTO) 1.1 K/uL (1.0-4.8); LYMPHOCYTES % (AUTO) 20.7 % (22.0-44.0); MEAN CORPUSCULAR HEMOGLOBIN 32.3 pg (26.0-34.0); MEAN CORPUSCULAR HGB CONC 33.1 G/dL (31.0-37.0); MEAN CORPUSCULAR VOLUME 98 fL (80-100); MONOCYTES # (AUTO) 0.4 K/uL (0.1-1.0); MONOCYTES % (AUTO) 8.3 % (2.0-9.0); NEUTROPHILS # (AUTO) 3.3 K/uL (1.8-7.7); NEUTROPHILS % (AUTO) 63.9 % (40.0-70.0); RED BLOOD CELL COUNT(AUTO) 2.99 MIL/uL (4.00-5.20); RED CELL DISTRIBUTION WIDTH 14.2 % (11.5-14.5)
[2019-06-10 00:30] LABS: PROTHROMBIN TIME 10.7 SEC (9.4-11.6)
[2019-06-10 00:31] LABS: PLATELET COUNT (AUTO) 66 K/uL (150-450)
[2019-06-10 02:29] VITALS: BP 166/84
== END 2019-06-10 02:49 | disposition home or self-care (01) ==
LOC: EMS 22:27
DX: T82.838A Hemorrhage due to vascular prosthetic devices, implants and grafts, initial encounter (principal); I11.0 Hypertensive heart disease with heart failure; I50.9 Heart failure, unspecified; E78.00 Pure hypercholesterolemia, unspecified; E11.9 Type 2 diabetes mellitus without complications; Z79.899 Other long term (current) drug therapy

== ENCOUNTER 2020-03-29 13:30 | Inpatient (IN) | payer MEDICAID ==
[~2020-03-29] VITALS: Ht 154.9 cm; Wt 119.3 kg
[~2020-03-29 13:30] MED LIST changes: +ASPI-1111 PO; -ASPI-1182 PO; -CHOL50004 PO; -GABA-531 PO; +HYDR25TA84 PO; -ISOS30TA6 PO; +LISI-662 PO; -PHOSLOC PO; +SIMV-43 PO; -SIMV20TA6 PO; -TRAM50TA4 PO
[2020-03-29] MEDS ORDERED: ROCURONIUM BROMIDE 10 MG/ML 5 ML VIAL ONE (13:51)
[2020-03-29] MEDS ORDERED: IOVERSOL 350 MG/ML 100 ML VIAL ONE (13:52)
[2020-03-29] MEDS ORDERED: SODIUM CHLORIDE 0.9% 0 ML ONE (13:52)
[2020-03-29] MEDS ORDERED: RAPID SEQUENCE KIT [RSI] 1 EACH KIT ONE (14:03)
[2020-03-29 14:05] LABS: BASOPHILS % (AUTO) 1.4 % (0.0-2.0); EOSINOPHILS % (AUTO) 7.9 % (1.0-6.0); HEMATOCRIT 39.6 % (36-46); HEMOGLOBIN 12.7 g/dL (12.0-16.0); LYMPHOCYTES % (AUTO) 14.4 % (22.0-44.0); MEAN CORPUSCULAR HEMOGLOBIN 32.9 pg (26.0-34.0); MEAN CORPUSCULAR HGB CONC 32.2 G/dL (31.0-37.0); MEAN CORPUSCULAR VOLUME 102 fL (80-100); MONOCYTES # (AUTO) 0.6 K/uL (0.1-1.0); NEUTROPHILS # (AUTO) 4.7 K/uL (1.8-7.7); NEUTROPHILS % (AUTO) 67.3 % (40.0-70.0); PLATELET COUNT (AUTO) 120 K/uL (150-450); RED BLOOD CELL COUNT(AUTO) 3.88 MIL/uL (4.00-5.20); RED CELL DISTRIBUTION WIDTH 15.2 % (11.5-14.5)
[2020-03-29] MEDS ORDERED: NiCARDipine HCL 25 MG in DEXTROSE 5%-WATER 240 ML IV PRN (14:17)
[2020-03-29 14:18] LABS: INR 1.1 (0.9-1.1); PROTHROMBIN TIME 10.9 SEC (9.4-11.6)
[2020-03-29 14:19] LABS: CREATININE 6.57 mg/dL (0.60-1.30); POTASSIUM 4.2 mmol/L (3.5-5.1)
[2020-03-29 14:26] LABS: ALBUMIN 3.8 g/dL (3.4-5.0); BILIRUBIN,TOTAL 0.6 mg/dL (0.1-1.0); TOTAL PROTEIN, SERUM 8.3 g/dL (6.4-8.2)
[2020-03-29] MEDS ORDERED: BISACODYL 10 MG RECTAL RECTAL SUPPOSITORY PR PRN (15:00)
[2020-03-29] MEDS ORDERED: ONDANSETRON HCL 4 MG/2 ML VIAL IVP PRN (15:00)
[2020-03-29] MEDS ORDERED: ACETAMINOPHEN 325 MG TABLET PO PRN (15:00)
[2020-03-29 15:53] LABS: ABG A-A DIFF O2 562.4 mmHg (10-20.0); ABG BASE EXCESS 5.2 mmol/L (-2.0-3.0); ABG CARBOXYHEMOGLOBIN 0.8 % (0.0-1.5); ABG HCO3 28.7 mmol/L (22.0-26.0); ABG METHEMOGLOBIN 0.4 % (0.0-1.5); ABG OXYGEN CONTENT 17.6 mL/dL (15.0-23.0); ABG OXYGEN SATURATION 98.5 % (95.0-98.0); ABG OXYHEMOGLOBIN 97.3 % (94.0-100.0); ABG PCO2 40 mmHg (35-45); ABG PH 7.472 (7.35-7.450); ABG TOTAL HEMOGLOBIN 12.7 G/dL (12.0-18.0); PO2, ARTERIAL BG 113.6 mmHg (79.0-87.0); SOURCE, BLOOD GAS ARTERIAL; TEMPERATURE, FAHRENHEIT, BG 96.3 FAHREN (96.0-98.6)
[2020-03-29 15:55] LABS: O2 DEVICE,BLOOD GAS VENTILATOR (ROOM AIR); PEEP,BG 5 cm H2O; SITE, BLOOD GAS RT RADIAL; VT, ABG 400 ml
[2020-03-29 17:51] LABS: APPEARANCE,URINE CLEAR (CLEAR); BILIRUBIN,URINE NEGATIVE (NEGATIVE); GLUCOSE, URINE (UA) 250 mg/dL (NEGATIVE); KETONES,URINE NEGATIVE (NEGATIVE); LEUKOCYTE ESTERASE ,URINE NEGATIVE (NEGATIVE); NITRATE,URINE NEGATIVE (NEGATIVE); OCCULT BLOOD,URINE TRACE (NEGATIVE); PROTEIN,URINE SEE CONFIRM (NEGATIVE); UROBILINOGEN,URINE 0.2 mg/dL (<=1.0)
[2020-03-29 17:59] LABS: AMPHET/METH SCREEN,URINE NEGATIVE (NEGATIVE); BARBITURATE SCREEN, URINE NEGATIVE (NEGATIVE); BENZODIAZEPINES SCREEN,URINE NEGATIVE (NEGATIVE); CANNABINOID SCREEN,URINE NEGATIVE (NEGATIVE); COCAINE SCREEN,URINE NEGATIVE (NEGATIVE); METHADONE SCREEN, URINE NEGATIVE (NEGATIVE); OPIATE SCREEN,URINE NEGATIVE (NEGATIVE)
[2020-03-29 18:04] LABS: PHENCYCLIDINE SCREEN,URINE NEGATIVE (NEGATIVE)
[2020-03-29 18:07] LABS: SULFOSALICYLIC ACID,URINE 4+ (Negative)
[2020-03-29 18:08] LABS: WBC,URINE 0-2 /HPF (0-5)
[2020-03-29 18:09] LABS: BACTERIA,URINE None Seen /HPF (None Seen); SQUAMOUS EPITHELIAL CELL,UR Rare /LPF (None Seen)
[2020-03-29] MEDS ORDERED: LevETIRAcetam 500 MG in DEXTROSE 5%-WATER 100 ML IV SCH (19:00)
[2020-03-29 19:03] LABS: GLUCOSE,POINT OF CARE 162 MG/DL (70-110)
[2020-03-29] MEDS: DOCUSATE SODIUM 100 MG CAPSULE PO SCH (21:00)
[2020-03-30 02:25] VITALS: BP 170/74
[2020-03-30] MEDS: NiCARDipine HCL 25 MG in DEXTROSE 5%-WATER 240 ML IV PRN ×2 (03:54→14:21)
[2020-03-30 04:48] VITALS: BP 170/74
[2020-03-30 08:00] VITALS: BP 161/79
[2020-03-30] MEDS: DOCUSATE SODIUM 100 MG CAPSULE PO SCH ×2 (08:12→21:00)
[2020-03-30 12:00] VITALS: BP 159/94
[2020-03-30 16:00] VITALS: BP 164/93
[2020-03-31] VITALS: BP 120/67
[2020-03-31 04:00] VITALS: BP 116/62
[2020-03-31 08:00] VITALS: BP 116/65
[2020-03-31] MEDS: DOCUSATE SODIUM 100 MG CAPSULE PO SCH ×2 (09:00→21:00)
[2020-03-31 12:00] VITALS: BP 92/59
[2020-03-31] MEDS ORDERED: PENTETATE DTPA TC99M/MCL ISOTOPE 1 EA INJ INJ ONE (14:30)
[2020-03-31 16:00] VITALS: BP 90/53
[2020-03-31] MEDS ORDERED: ETOMIDATE 2 MG/ML 10 ML VIAL IVP ONE (18:08)
[2020-03-31] MEDS ORDERED: ROCURONIUM BROMIDE 10 MG/ML 5 ML VIAL IVP ONE (18:08)
[2020-04-01] VITALS: BP 110/46
== END 2020-04-01 09:30 | disposition expired | DRG 44 ==
LOC: EMS 13:31 → ICU 14:53
PROVIDERS: ADMIT Internal Medicine; ATTEND Internal Medicine
PROC: 5A1935Z Respiratory Ventilation, Less than 24 Consecutive Hours (ICD-10-PCS; principal; 2020-03-29)
PROC: 0BH17EZ Insertion of Endotracheal Airway into Trachea, Via Natural or Artificial Opening (ICD-10-PCS; 2020-03-29)
PROC: 5A1945Z Respiratory Ventilation, 24-96 Consecutive Hours (ICD-10-PCS; 2020-03-30)
PROC: 5A09357 Assistance with Respiratory Ventilation, Less than 24 Consecutive Hours, Continuous Positive Airway Pressure (ICD-10-PCS; 2020-03-30)
DX: I62.9 Nontraumatic intracranial hemorrhage, unspecified (principal); I46.9 Cardiac arrest, cause unspecified; J96.00 Acute respiratory failure, unspecified whether with hypoxia or hypercapnia; Z99.11 Dependence on respirator [ventilator] status; G93.40 Encephalopathy, unspecified; I13.2 Hypertensive heart and chronic kidney disease with heart failure and with stage 5 chronic kidney disease, or end stage renal disease; G91.9 Hydrocephalus, unspecified; I16.1 Hypertensive emergency; Z20.828 Contact with and (suspected) exposure to other viral communicable diseases; E11.22 Type 2 diabetes mellitus with diabetic chronic kidney disease; I25.10 Atherosclerotic heart disease of native coronary artery without angina pectoris; N18.6 End stage renal disease; Z66 Do not resuscitate; I50.9 Heart failure, unspecified; E78.00 Pure hypercholesterolemia, unspecified; Z99.2 Dependence on renal dialysis; Z74.01 Bed confinement status
CPT/HCPCS: 36600; 78606; 82805; 86850; 86900; 86901; 87070; 87081; 87205; 87635; 93005; 94002; 94003; 99291; 99292; A9521; A9539; G0378; J0712; J3490; J7050; J7060